=== PATIENT | female | born 1985 | race Caucasian/White ===

== ENCOUNTER → 2017-11-03 | Outpatient (CLI) | payer BC ==
[~2017-11-03] MED LIST: CEPH-13 PO; CLOB15OI16 TP; ETON1VAG7 VG; MULT1CAP59 PO; TRIA15OI20 TP
== END ==
LOC: RESP 06:34
PROVIDERS: ATTEND Nurse Practitioner Family
DX: J98.4 Other disorders of lung (principal)
CPT/HCPCS: 94060; 94726; 94729